=== PATIENT | female | born 1990 | race Asian ===

== ENCOUNTER 2022-12-21 19:50 | Outpatient (CLI) | payer OTHER, MEDICAID, SELFPAY ==
[2022-12-21 20:04] VITALS: BMI 48.3
[2022-12-21 20:08] VITALS: PULSE 90; O2SAT 97
[2022-12-21 20:10] VITALS: BP 141/64; PULSE 86; TEMP 36.8
[2022-12-21 20:28] VITALS: BP 146/73; PULSE 86
[2022-12-21 21:00] LABS: Hematocrit 35.3 % (37-47); Hemoglobin 12.2 g/dL (12.0-15.0); Mean Corp Hgb Conc 34.6 g/dL (32-36); Mean Corpuscular Volume 89.8 fL (81-99); Mean Platelet Vol. 9.2 fl (6.2-12.0); Platelet Count 251 K/mm3 (150-450); RBC Distribution Width CV 12.6 % (11.6-14.6); RBC Distribution Width SD 41.4 fl (35.1-43.9); Red Blood Count 3.93 M/mm3 (4.2-5.4); White Blood Count 13.5 K/mm3 (4.4-11.0)
[2022-12-21 21:15] LABS: AST(SGOT) 16 U/L (15-37); Alanine Aminotransfer ALT/SGPT 23 U/L (13-56); Creatinine, Serum 0.53 mg/dL (0.55-1.02); EST Glomerular Filtration Rate 142 mL/min (>60); Est Glom Filt Rate - Afr Amer 172 mL/min (>60); Estimated Creatinine Clearance 108.44 ml/min; Uric Acid 3.4 mg/dL (2.6-6.0)
[2022-12-21 21:16] LABS: Protein:Creat Ratio 107 mg/g CRE (0-200)
--- NOTE | 2022-12-22 13:53 | OB.TRI.NOTE ---
HPI - General General Date of Service: 12/21/22 HPI Narrative HERSON JONES, is a 32 F @ 34.6 weeks who presents with decreased FM and swelling in hands and feet. no QUICK, or visual changes. Mildly elevated systolic bp on evalatuion. PFSH PFSH Home Medications aspirin 81 mg capsule 162 mg PO DAILY 12/21/22 [History Last Taken Unknown] escitalopram oxalate 10 mg tablet (Lexapro) 10 mg PO DAILY 12/21/22 [History Last Taken Unknown] vit no.95-ferrous fumarate 28 mg-folic acid 800 mcg tablet () 1 tab PO DAILY 12/21/22 [History Last Taken Unknown] Allergy/AdvReac Type Severity Reaction Status Date / Time No Known Allergies Allergy Verified 12/21/22 20:05 NST FHR Rate Baby A Baseline: 135 Accelerations:: 15 x 15 Decelerations:: None NST Reactive:: Yes FHR Category:: Category I Uterine Activity:: irregular Assessment & Plan (1) Gestational hypertension: (2) Obesity affecting : PLAN: Plan @ 34.6 weeks- well being established, Mild range BP 1)likely GHTN, PRE E labs normal 2) Continue weekly nsts and serial growth us as scheduled in office 3) dc home
== END 2022-12-21 21:25 | disposition home or self-care (01) ==
LOC: WPOUT 20:01 → WP 20:02
PROVIDERS: PCP Family Medicine; Referring Provider Obstetrics & Gynecology; Visit Provider Obstetrics & Gynecology
DX: O36.8130 Decreased fetal movements, third trimester, not applicable or unspecified (principal); Z3A.34 34 weeks gestation of pregnancy; O13.3 Gestational [pregnancy-induced] hypertension without significant proteinuria, third trimester; O99.213 Obesity complicating pregnancy, third trimester
CPT/HCPCS: 36415; 59025; 59050; 82565; 82570; 84156; 84450; 84460; 84550; 85027; 99221; G0378

== ENCOUNTER 2023-01-19 09:33 | Inpatient (IN) | payer OTHER, MEDICAID, SELFPAY ==
--- NOTE | 2023-01-12 17:39 | HP.PCM.OB_ITS ---
HPI - General General Date of Admission: 01/12/23 Date of Service: 01/19/23 Chief Complaint: desires c/s HPI Narrative HPI: The patient is a 32 year old female presenting for pre-operative visit. She is scheduled for , for elective on 01/19/13. Procedure discussed along with risks, benefits and complications. Other alternatives discussed for management. Consent form signed? Yes. ? ? PAST MEDICAL HISTORY PAST MEDICAL HISTORY Diagnosis Date ? PCOS (polycystic ovarian syndrome) ? ? Plantar fasciitis ? ? ? PAST SURGICAL HISTORY PAST SURGICAL HISTORY Procedure Laterality Date ? ORAL SURGERY PROCEDURE N/A ? CURRENT MEDICATIONS Current Outpatient Medications Medication Sig Dispense Refill ? aspirin, enteric coated (ASPIRIN, ENTERIC COATED) 81 mg EC tablet Take 2 tablets by mouth once daily. 90 tablet 5 ? escitalopram oxalate (LEXAPRO) 10 mg tablet Take 10 mg by mouth once daily. ? ? ? Prenat Vit Comb.59-Vwrx-CV-DHA (VITAFOL-OB+DHA) 65-1-250 mg Take 1 Packet by mouth once daily. 60 Each 11 ? No current facility-administered medications for this visit. ? ? ALLERGIES: Patient has no known allergies. ? PERSONAL HISTORY: SOCIAL HISTORY Social History ? Tobacco Use ? Smoking status: Never ? Smokeless tobacco: Never Vaping Use ? Vaping Use: Never used Substance Use Topics ? Alcohol use: Yes ? ? Comment: rare ? Drug use: Never ? FAMILY HISTORY: FAMILY HISTORY FAMILY HISTORY Problem Relation Age of Onset ? COPD Father ? ? Breast Cancer Maternal Aunt ? ? ? REVIEW OF SYMPTOMS: GENERAL: denies fevers or chills ENDOCRINOLOGY: has not been on steroids Cardiology : denies palpitations or chest pain Respiratory: denies SOB or cough Hematology: denies history of prolonged bleeding or easy bruising or VTE Allergy: Denies history of personal or family history of allergy to anesthesia ? PHYSICAL EXAMINATION: ? VITALS: Blood pressure 124/70, pulse 101, resp. rate 16, height 5' (1.524 m), weight 254 lb (115.2 kg), last menstrual period 04/21/2022, SpO2 97 %. ? GENERAL: The patient is well nourished, well hydrated in no acute distress. , The patient is oriented to time, place, and person. NECK: Supple. No lynphadenopathy, normal thyroid, no thyromegaly. LUNGS: Clear to auscultation bilaterally. no wheezes, rhonchi or rales ABD--soft, nontender, gravid ? IMPRESSION: Estimated Date of Delivery: 01/26/23 polyhdramnios, maternal obesity, high risk , desires elective c/s ? PLAN: The risks/benefits/alternatives and personal involved for the planned c- section were reviewed with the patient. Her questions were answered to her satisfaction and she desires to proceed. Consent was signed. I reviewed with her postop instructions and expectations. ? ? I have reviewed and updated past medical and surgical history, medications and allergies Maternal Data Information Final CATRINA: 01/26/23 Gestational age: 39 weeks PFSH PFS Home Medications aspirin 81 mg capsule 162 mg PO DAILY 12/21/22 [History Last Taken Unknown] escitalopram oxalate 10 mg tablet (Lexapro) 10 mg PO DAILY 12/21/22 [History Last Taken Unknown] vit no.95-ferrous fumarate 28 mg-folic acid 800 mcg tablet () 1 tab PO DAILY 12/21/22 [History Last Taken Unknown] Allergy/AdvReac Type Severity Reaction Status Date / Time No Known Allergies Allergy Verified 12/21/22 20:05 Labs Labs Labs: Hct 35.3 % (37-47) L Hgb 12.2 g/dL (12.0-15.0) Assessment & Plan (1) 39 weeks gestation of : (2) Obesity affecting : (3) Polyhydramnios affecting in third trimester:
[2023-01-19] VITALS (16 sets, daily range): BP systolic 94–155; BP diastolic 47–79; PULSE 76–102; RESP 14–19; TEMP 35.8–36.8; O2SAT 95–100; BMI 50.1
[2023-01-19] MEDS: Lactated Ringers 1,000 ML 999 ML IV (10:23)
[2023-01-19 10:37] LABS: Absolute Lymphocyte Count 1.47 X10^3/uL (0.83-4.51); Absolute Neutrophil Count 6.8 X10^3/uL (2.0-7.7); Basophil# 0.05 X10^3/uL; Basophil% 0.5 % (0-1); Eosinophil# 0.08 X10^3/uL; Eosinophils% 0.9 % (0-5); Hematocrit 37.4 % (37-47); Hemoglobin 12.4 g/dL (12.0-15.0); Lymphocyte # 1.47 X10^3/ul (0.83-4.51); Lymphocyte % 16.1 % (19-41); Mean Corp Hgb Conc 33.2 g/dL (32-36); Mean Corpuscular Hgb 30.5 pg (27.0-32.0); Mean Corpuscular Volume 91.9 fL (81-99); Mean Platelet Vol. 9.3 fl (6.2-12.0); Monocyte# 0.61 X10^3/uL; Monocyte% 6.7 % (0-10); NRBC Flagged by Analyzer 0 % (0-5); Neutrophil # 6.77 X10^3/uL (2.7-7.7); Neutrophil % 74.2 % (47-70); Platelet Count 265 K/mm3 (150-450); RBC Distribution Width CV 12.7 % (11.6-14.6); RBC Distribution Width SD 41.9 fl (35.1-43.9); Red Blood Count 4.07 M/mm3 (4.2-5.4); White Blood Count 9.1 K/mm3 (4.4-11.0)
[2023-01-19] MEDS: Acetaminophen 500 MG Tablet 1000 MG PO ×3 (10:58→23:02)
[2023-01-19] MEDS: Lactated Ringers 1,000 ML 150 ML IV (11:17)
[2023-01-19 11:20] LABS: Syphilis Antibodies Non-reactive
[2023-01-19] MEDS: Sodium Citrate/Citric Acid 30 ML UDC PO (11:42)
[2023-01-19] MEDS: Cefazolin 3 GM in 0.9% Normal Saline (100mL Bag) 100 ML IV (12:10)
--- NOTE | 2023-01-19 12:19 | EX.PCM.OBRPT ---
Assessment & Plan (1) deliv NOS-unsp: (2) Polyhydramnios affecting in third trimester: (3) 39 weeks gestation of : (4) Obesity affecting : Maternal Data Information Final CATRINA: 01/26/23 Gestational age: 39 0/7 Details Operative Information Date of Procedure: 01/19/23 Pre-Operative Diagnosis: Polyhydramnios, maternal obesity with BMI 50, elective primary section Post-Operative Diagnosis: same Indications Narrative: Elective primary c/s Classification: Scheduled Procedure Type: low transverse fagot heater helper #1: Mayra Navarro Type of Anesthesia: Spinal Anesthesiologist: Belén Kimble Special Medications: none Antibiotic Given: Ancef 2 grams IV x1 Drain: Ngo to straight drain Estimated Blood Loss: 800 Fluids Replaced: 700 Procedure Start Time: 12:26 Procedure Stop Time: 12:48 Time of Delivery: 12:31 Findings Description of Procedure: The patient was taken to the operating room. She was prepped and draped in the dorsal supine position with a leftward tilt. A Pfannenstiel skin incision was made approximately 2 cm above the symphysis pubis and carried through to underlying layer fascia with the scalpel. The fascia was stretched with blunt dissection. The peritoneum was entered bluntly. The peritoneal incision was stretched bluntly. The Zay O retractor was placed and after ensuring no abdominal contents were trapped underneath it it was secured in place. The uterine incision was made in a low transverse fashion with the scalpel and extended superiorly and inferiorly with blunt dissection. The amniotic membranes were ruptured bluntly and clear amniotic fluid returned. A large amount of clear fluid was leaked out. The infant's head was brought to the incision in the flexed position and was unable to be delivered with fundal pressure only. The vacuum was placed on the flexion point and vacuum created 550 mmHg. I pulled once with fundal pressure in the standard fashion and there was a pop-off. A second attempt was made and there was a second pop-off. The uterine incision was then extended laterally with bandage scissors. The vacuum was placed at third time as we are unable to deliver it which is fundal pressure. With gentle traction and then the head delivered and the vacuum was removed. The remainder the infant delivered in less than 15 seconds without difficulty. The cord was clamped and cut as the infant was stimulated. Cord clamping was not delayed. The infant was handed off to the waiting nursing staff. The placenta was delivered with fundal massage and gentle traction in the standard fashion. The uterus was exteriorized and cleared of all clots and debris. The cervix was dilated with a ring forcep. The uterine incision was closed with #1 Vicryl in a running locked fashion. A second layer of the same suture was used in an imbricating fashion. The incision was examined and was found to be hemostatic. The uterus was placed back into the peritoneal cavity and hemostasis was again confirmed. The rectus muscles were examined and any bleeding was Bovie cauterized. The parietal peritoneum and rectus muscles were closed en bloc with an 0 Vicryl running suture. The surgical teams outer gloves were then changed. The rectus fascia was examined and any bleeding was Bovie cauterized and the rectus fascia was closed with looped #1 PDS suture in a running standard fashion. The subcutaneous tissue was examining and any bleeding was Bovie cauterized. The subcutaneous tissue was reapproximated with 3-0 Vicryl suture. The skin was closed in a subcuticular fashion with 3-0 Monocryl suture. I performed the entire procedure with assistance. Qualified residents were available to assist. Dr. Rivera provided fundal pressure to deliver the , retraction and tissue manipulation during the surgery All sponge, lap, and needle counts were correct. The patient was taken to her room for recovery in a stable condition. Presentation: Positive for Vertex Amniotic Membrane Rupture Type: Artificial Amniotic Fluid Description: Clear Placental Delivery Description: Expressed Placenta Disposition: [facility] Specimen(s) Sent to Pathology: none Cord Vessel Description: 3 Vessels Cord Entanglement: None Cord Gases: ABG and VBG A Gender: Male (H[place]inson) (1 minute): 7 (5 minute): 8 Delayed Cord Clamping: No Complications Complications: none Admit VTE Documentation VTE Present on Admission: No VTE Mechan Device Prophylaxis: [facility]'s VTE Pharm Prophylaxis Ordered: Yes
[2023-01-19] MEDS: Oxytocin 15 Units/NS 250ml 15 UNITS/250 ML IV.SOLN 83 UNITS IV (13:20)
[2023-01-19] MEDS: Ketorolac 30 MG/ML Syringe IV ×2 (13:30→19:48)
[2023-01-19] MEDS: Lactated Ringers 1,000 ML 100 ML IV ×2 (16:25→20:02)
[2023-01-19] MEDS: Escitalopram Oxalate 10 MG Tablet PO (21:45)
[2023-01-20] MEDS: oxyCODONE 5 MG Tablet PO ×2 (00:14→16:15)
[2023-01-20] MEDS: Enoxaparin 40 MG/0.4 ML Syringe SC ×3 (00:15→21:36)
[2023-01-20] MEDS: 0.9% Saline Lock 10 ML Syringe IV ×2 (01:47→07:43)
[2023-01-20] MEDS: Ketorolac 30 MG/ML Syringe IV ×2 (01:47→07:46)
[2023-01-20 04:13] VITALS: BP 124/77; PULSE 88; RESP 16; TEMP 36.6; O2SAT 96
[2023-01-20] MEDS: Acetaminophen 500 MG Tablet 1000 MG PO ×4 (05:03→23:33)
[2023-01-20 05:25] LABS: Hematocrit 34.6 % (37-47); Hemoglobin 11.5 g/dL (12.0-15.0); Mean Corp Hgb Conc 33.2 g/dL (32-36); Mean Corpuscular Hgb 30.8 pg (27.0-32.0); Mean Corpuscular Volume 92.8 fL (81-99); Mean Platelet Vol. 9.8 fl (6.2-12.0); Platelet Count 263 K/mm3 (150-450); RBC Distribution Width CV 12.9 % (11.6-14.6); RBC Distribution Width SD 43.4 fl (35.1-43.9); Red Blood Count 3.73 M/mm3 (4.2-5.4); White Blood Count 13.8 K/mm3 (4.4-11.0)
[2023-01-20 08:00] VITALS: BP 110/56; PULSE 84; RESP 18; TEMP 36.6; O2SAT 97
--- NOTE | 2023-01-20 08:43 | PN.OBGYN_ITS ---
Subjective Subjective Patient seen at bedside. Feeling well. Pain is controlled with Motrin and Tylenol PO. Patient ambulating and voiding without difficulty. Passing flatus. Denies any CP, SOB or dizziness. Objective Data Objective Data Vital Signs: Vital Signs Temp Pulse Resp BP Pulse Ox O2 Del Method 97.9 F 88 16 124/77 H 96 Room Air 01/20/23 04:13 01/20/23 04:13 01/20/23 04:13 01/20/23 04:13 01/20/23 04:13 01/20/23 04:13 Oxygen Delivery Method Room Air Weight: 257 lb Body Mass Index (BMI) 50.1 Intake & Output: Intake and Output for Last 24 Hours 01/18/23 01/19/23 01/20/23 23:59 23:59 23:59 Intake Total 2040.00 / 2040.00 Output Total 1500 / 1500 300 / 300 Balance 540.00 / 540.00 -300 / -300 Lab / Micro Data 01/20/23 05:15 Labs: Laboratory Results - last 24 hr 01/19/23 10:20: WBC 9.1, RBC 4.07 L, Hgb 12.4, Hct 37.4, MCV 91.9, MCH 30.5, MC HC 33.2, RDW Std Deviation 41.9, RDW Coeff of Ash 12.7, Plt Count 265, MPV 9.3, Immature Gran % (Auto) 1.600 H, Neut % (Auto) 74.2 H, Lymph % (Auto) 16.1 L, [place] % (Auto) 6.7, Eos % (Auto) 0.9, Baso % (Auto) 0.5, Absolute Neuts (auto) 6.8, Absolute Lymphs (auto) 1.47, Nucleated RBC % 0, Syphilis Total Ab Non- reactive, Blood Type B POSITIVE, Antibody Screen NEGATIVE 01/20/23 05:15: WBC 13.8 H, RBC 3.73 L, Hgb 11.5 L, Hct 34.6 L, MCV 92.8, MCH 30.8, MCHC 33.2, RDW Std Deviation 43.4, RDW Coeff of Ash 12.9, Plt Count 263, MPV 9.8 Physical Exam Narrative Dressing is dry and intact Const alert and no apparent distress General Appearance: cooperative and comfortable Exam Limitations: no limitations HEENT normocephalic Eyes General Eye: normal appearance of both eyes Neck full ROM General: normal visual inspection Chest Chest: symmetrical chest wall rise Resp normal respiratory effort and normal air movement Effort and Inspection: symmetric chest movement Auscultation: clear to auscultation bilaterally Cardio regular rate and regular rhythm GI normal to inspection, nondistended, normoactive bowel sounds Back/Spine normal ROM Extremity full ROM and no calf tenderness General Extremity: normal exam except as noted Skin no rashes or lesions noted Neuro CN's II-XII intact bilaterally Psych mental status grossly normal Assessment & Plan (1) deliv NOS-unsp: (2) Obesity affecting : PLAN: POD 1 Primary C/S Routine care Pain control Increase ambulation Formula feeding Anticipate discharge home tomorrow
[2023-01-20] MEDS: Senna/Docusate Sodium 1 Tablet PO (11:04)
[2023-01-20 12:20] VITALS: BP 118/68; PULSE 81; RESP 16; TEMP 36.7; O2SAT 97
[2023-01-20] MEDS: Naproxen 500 MG Tablet PO ×2 (14:06→21:36)
[2023-01-20 15:20] VITALS: BP 103/60; PULSE 90; RESP 16; TEMP 36.8; O2SAT 100
[2023-01-20 20:20] VITALS: BP 122/65; PULSE 72; RESP 16; TEMP 36.2; O2SAT 98
[2023-01-20] MEDS: Escitalopram Oxalate 10 MG Tablet PO (21:36)
[2023-01-21 02:45] VITALS: BP 117/67; PULSE 83; RESP 16; TEMP 36.3; O2SAT 97
[2023-01-21] MEDS: Acetaminophen 500 MG Tablet 1000 MG PO (06:12)
[2023-01-21] MEDS: Naproxen 500 MG Tablet PO (06:12)
--- NOTE | 2023-01-21 07:43 | PCM.DC.SUM ---
Providers Date of Admission: 01/19/23 Primary Care Physician: Dr. Gadiel Jolley MD Reason For Visit: PRIMARY Diagnosis Discharge Diagnosis (1) deliv NOS-unsp: Status: Acute (2) Obesity affecting : Status: Acute Code(s): O99.210 - Obesity complicating , unspecified trimester Plan: POD 2 Primary C/S Routine care Pain control Medications at Discharge Home Medications escitalopram oxalate 10 mg tablet (Lexapro) 10 mg PO DAILY anxiety 12/21/22 vit no.95-ferrous fumarate 28 mg-folic acid 800 mcg tablet () 1 tab PO DAILY 12/21/22 acetaminophen 500 mg tablet 1,000 mg (2 x 500 mg) PO Q6H #0 tabs 01/21/23 naproxen 500 mg tablet 500 mg PO Q8H #0 tabs 01/21/23 sennosides 8.6 mg-docusate sodium 50 mg tablet (Stool Softener-Stimulant Laxative) 1 - 2 tab PO DAILY #0 tabs 01/21/23 Hospital Course Operations section Summary of Care Provided Minutes Spent on Discharge: 20 Hospital Course: Patient was for elective, primary section. Hospital course was uneventful. Physical Exam Narrative Dressing is dry and intact Const alert and no apparent distress General Appearance: cooperative and comfortable Exam Limitations: no limitations HEENT normocephalic Eyes General Eye: normal appearance of both eyes Neck full ROM General: normal visual inspection Chest Chest: symmetrical chest wall rise Resp normal respiratory effort and normal air movement Effort and Inspection: symmetric chest movement Auscultation: clear to auscultation bilaterally Cardio regular rate and regular rhythm GI normal to inspection, nondistended, normoactive bowel sounds Back/Spine normal ROM Extremity full ROM and no calf tenderness General Extremity: normal exam except as noted Skin no rashes or lesions noted Neuro CN's II-XII intact bilaterally Psych mental status grossly normal Weight / BMI Weight Weight: 257 lb Body Mass Index (BMI) 50.1 ABG / Lab / Microbiology Data 01/20/23 05:15 D/C Instructions Discharge Diet: No restrictions May resume sexual activity in: 6-8 weeks Weight Bearing Status: Weight bearing as tolerated Lifting Restrictions: 20 lbs Call your doctor if your incision/area has: Continuous Slow Oozing, Increased Pain/ Swelling, Increased Redness, Foul Smelling Discharge and Swelling at the incision site Call your doctor if you observe: Fever of 101 or Higher, Inability to urinate, Using more than 1 pad per hour, Shortness of breath, Chest pain, Calf discomfort and Uncontrolled pain Remove Dressing in: 5 days Cleanse incision/area with: Soap & Water and Keep Dressing Clean & Dry Please Follow Up With: Serenity Perez MD When: 1 week in office for incision check or sooner if needed 6 weeks Meaningful Use Info Meaningful Use Diagnoses (Choose all that apply): None applicable Discharge Plan Admission Admit Date/Time: 01/19/23 09:33 Primary Reason for Your Visit: Primary Section Attending Provider: Serenity Perez Primary Care Provider: Gadiel Jolley Discharge Orders/Prescriptions Prescriptions: New sennosides-docusate sodium [Stool Softener-Stimulant Laxat] 8.6-50 mg Tablet 1 - 2 tab PO DAILY Qty: 0 0RF acetaminophen 500 mg Tablet 1,000 mg PO Q6H Qty: 0 0RF naproxen 500 mg Tablet 500 mg PO Q8H Qty: 0 0RF Continued escitalopram oxalate [Lexapro] 10 mg tablet 10 mg PO DAILY PNV cmb#95-ferrous fumarate-FA [] 28 mg iron- 800 mcg tablet 1 tab PO DAILY Discontinued aspirin 81 mg capsule 162 mg PO DAILY Referrals / Follow Up: Gadiel Jolley MD [Primary Care Provider] - Disposition Disposition (needs filled in before D/C Order can be placed): Home, Self Care
[2023-01-21 07:51] VITALS: BP 117/74; PULSE 84; RESP 16; TEMP 36.6; O2SAT 96
== END 2023-01-21 11:35 | disposition home or self-care (01) | DRG 788 ==
PROVIDERS: Admitting Provider Obstetrics & Gynecology; PCP Family Medicine; Visit Provider Obstetrics & Gynecology
PROC: 10D00Z1 Extraction of Products of Conception, Low, Open Approach (ICD-10-PCS; CPT 59514; principal; 2023-01-19 11:45)
DX: O40.3XX0 Polyhydramnios, third trimester, not applicable or unspecified (principal); O99.214 Obesity complicating childbirth; Z37.0 Single live birth; Z3A.39 39 weeks gestation of pregnancy
CPT/HCPCS: 59050; 85025; 85027; 86780; 86850; 86900; 86901; 99221; J7120; A4216; G0378; J2405